=== PATIENT | female | born 1985 | race Caucasian/White ===

== ENCOUNTER → 2023-06-30 15:20 | Outpatient (BNVA) | payer BC, SELFPAY | PROVIDERS: Visit Provider Nurse Practitioner Family | DX: R33.9 Retention of urine, unspecified (principal) | CPT/HCPCS: 81000; 81003 ==

== ENCOUNTER 2024-02-25 01:46 | Emergency (ER) | payer SELFPAY ==
[2024-02-25 01:47] VITALS: BP 126/78; PULSE 106; RESP 18; O2SAT 100; BMI 44.7
--- NOTE | 2024-02-25 01:50 | CTR_ITS ---
PROCEDURE INFORMATION: Exam: CT Head Without Contrast Exam date and time: 02/25/2024 2:07 AM Age: 38 years old Clinical indication: Pain; Headache; Post-traumatic; Prior surgery; Surgery date: 3-7 days post-operative; Surgery type: Brain tumor removed 2 weeks ago; Additional info: Headache, S/P brain surgery TECHNIQUE: Imaging protocol: Computed tomography of the head without contrast. Radiation optimization: All CT scans at this facility use at least one of these dose optimization techniques: automated exposure control; mA and/or kV adjustment per patient size (includes targeted exams where dose is matched to clinical indication); or iterative reconstruction. COMPARISON: No relevant prior studies available. RADIATION DOSE METRICS: Total DLP (mGy-cm): 1095.28 FINDINGS: Brain: Small subdural collection at the operative site measures 4 mm in thickness. mass effect on the left hemisphere with midline shift measured 8 mm [id number]. Fluid at the operative site measures 4.2 cm in diameter. Cerebral ventricles: Ventricles are normal in size and position. Paranasal sinuses: Visualized sinuses are unremarkable. No fluid levels. Mastoid air cells: Visualized mastoid air cells are well aerated. 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 This is predominantly fluid density with a small amount of air. Soft tissues: Overlying scalp swelling. CT/CT head wo con* [id number] IMPRESSION: 1. 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 This is predominantly fluid density with a small amount of air. Measures 4.2 cm diameter 2. Mass effect on the left hemisphere with midline shift measured 8 mm [id number]. Compare with prior exam is needed
--- NOTE | 2024-02-25 01:55 | ED_ITS ---
HPI - Headache 2 General: Chief Complaint: Headache Stated Complaint: HEADACHE Time Seen by Provider: 02/25/24 01:47 History of Present Illness: 38-year-old female presents emergency ro om by ambulance with a headache. She says she has had this headache since she had brain surgery at [facility] couple of weeks ago. She is run out of pain medications and the pain has become intolerable she said. No new focal motor deficits. No real changes in her pain. No fevers. Related Data Previous Rx's Medication Instructions Recorded buspirone 15 mg tablet 15 mg PO BID 90 days #180 tabs 04/17/23 losartan 100 1 tab PO DAILY 90 days #90 tabs 04/17/23 mg-hydrochlorothiazide 25 mg tablet promethazine 25 mg tablet 12.5 mg (1/2 x 25 mg) PO TID PRN 06/30/23 nausea and vomiting #10 tabs potassium chloride 20 mEq See Rx Instructions .Route 08/01/23 tablet,extended release .COMPLEX #90 tabs tizanidine 4 mg tablet 4 mg PO Q8H PRN muscle spasticity 09/05/23 #90 tabs amitriptyline 75 mg tablet 75 mg PO DAILY 90 days #90 tabs 10/14/23 ondansetron HCl 4 mg tablet 4 mg PO TID PRN nausea and 10/14/23 vomiting #20 tabs tramadol 50 mg tablet 50 mg PO TID PRN pain 30 days #90 10/14/23 tabs hydroxyzine HCl 25 mg tablet 25 mg PO QID PRN anxiety #90 tabs 10/22/23 olanzapine 20 mg tablet 20 mg PO DAILY 90 days #90 tabs 10/23/23 venlafaxine 75 mg capsule,extended 225 mg (3 x 75 mg) PO DAILY #9 caps 11/24/23 release 24 hr (Effexor XR) furosemide 40 mg tablet See Rx Instructions .Route 12/08/23 .COMPLEX #30 tabs hydrocodone 5 mg-acetaminophen 325 1 tab PO Q6H PRN pain #20 tabs 02/25/24 mg tablet polyethylene glycol 3350 17 17 g PO DAILY #510 grams 02/25/24 gram/dose oral powder (Miralax) Allergies Allergy/AdvReac Type Severity Reaction Status Date / Time No Known Allergies Allergy Verified 02/25/24 01:54 Review of Systems 2 Narrative: Constitutional symptoms: Negative except as documented in HPI. Skin symptoms: Negative except as documented in HPI. Eye symptoms: Negative except as documented in HPI. ENMT symptoms: Negative except as documented in HPI. Respiratory symptoms: Negative except as documented in HPI. Cardiovascular symptoms: Negative except as documented in HPI. Gastrointestinal symptoms: Negative except as documented in HPI. Genitourinary symptoms: Negative except as documented in HPI. Musculoskeletal symptoms: Negative except as documented in HPI. Neurologic symptoms: Negative except as documented in HPI. Psychiatric symptoms: Negative except as documented in HPI. Endocrine symptoms: Negative except as documented in HPI. PFSH ED 2 PFSH: Medical History Vapes nicotine containing substance History of radiation therapy Breast cancer, left History of chemotherapy Anxiety and depression Hypertension Edema Surgical History H/O total mastectomy of left breast Social History Smoking and tobacco/nicotine status: never used tobacco/nicotine Household members: spouse Marital status: Current occupational status: employed Current gender identity: Female Physical Exam 2 Narrative: EXAM NARRATIVE: General: Alert, no acute distress. Skin: Warm, dry. Head: Normocephalic, atraumatic. Surgical site seems clean dry and intact. Neck: Supple, trachea midline. Eye: Extraocular movements are intact. Ears, nose, mouth and throat: mucosa moist. Cardiovascular: Regular, Normal peripheral perfusion. Respiratory: Lungs are clear to auscultation, respirations are non-labored, breath sounds are equal, Symmetrical chest wall expansion. Gastrointestinal: Soft, Nontender, Non distended Musculoskeletal: Normal ROM, no deformity. Neurological: Alert and oriented, No focal neurological deficit observed. Psychiatric: Cooperative, appropriate mood & affect. Course 2 Vital Signs: Vital signs: Vital Signs Pulse Rate 98 02/25/24 02:33 Respiratory Rate 18 02/25/24 02:57 Blood Pressure 127/92 02/25/24 02:33 Pulse Oximetry 100 02/25/24 02:57 Oxygen Delivery Me thod Room Air 02/25/24 01:47 MDM - Headache Medical Decision Making Medical decision making: Differential diagnosis including but not limited to and based on the above HPI, review of systems and physical exam: Seems this is just postsurgical pain and she is run out of her pain medications. However workup to rule out anything worsening seems appropriate. A head CT to look for signs of infection and basic lab work. Orders placed to evaluate differential diagnosis based on the above differential, HPI and physical exam CT of the head without contrast: There is a large area of postsurgical change. There is still some air there. There is about 8 mm of shift. Given the size of the surgical site radiologist thinks this is likely nothing acute. This was reviewed and interpreted by myself the emergency room physician. I also reviewed the radiology report. Lab Review: Laboratory results were reviewed and interpreted by myself the emergency room physician. Mild leukocytosis with a white count 15,000. Hemoglobin is low at 8.2. I do not have any comparisons to know if this is different than her norm. Does not need transfusion at this point and no indications of GI bleeding. No renal failure. I reviewed the patient's medical record. Reexamination: Patient is improved with pain medications. She says she has not had any new neurologic symptoms and no new pain she just does not have any pain medications. Assessment and plan: Postoperative headache ?Toradol and Zofran without much improvement. She did have improvement with Dilaudid - Discharged home - Discussed findings and plan with patient. Answered any questions. - All laboratory values were reviewed and interpreted personally by myself, the ER physician - All imaging was reviewed and interpreted personally by myself, the ER physician. - Evaluation and treatment of this problem were appropriate in the emergency setting Lab Data 02/25/24 01:58 02/25/24 01:[address] 02/25/24 01:50 IMPRESSION: 1. 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 This is predominantly fluid density with a small amount of air. Measures 4.2 cm diameter 2. Mass effect on the left hemisphere with midline shift measured 8 mm [id number]. Compare with prior exam is needed ADDENDUM: 02/25/24 [id number] Addendum: Findings discussed with Dr. Sanders at 3:22 a.m. central time on 02/25/2024 Laboratory Results WBC 15.21 10^3/uL (3.29-11.43) H 02/25/24 01:58 RBC 3.11 10^6/uL (3.85-5.65) L 02/25/24 01:58 Hgb 8.20 g/dL (11.27-16.99) L 02/25/24 01:58 Hct 27.9 % (36-47) L 02/25/24 01:58 MCV 89.7 fl (85-98) 02/25/24 01:58 MCH 26.4 pg (27-33) L 02/25/24 01:58 MCHC 29.4 g/dL (30-55) L 02/25/24 01:58 RDW 19.1 % (12.1-15.1) H 02/25/24 01:58 Plt Count 657 10^3/cmm (157-399) H 02/25/24 01:58 MPV 8.5 fL (7.4-10.4) 02/25/24 01:58 Neut % (Auto) 58.0 % 02/25/24 01:58 Lymph % (Auto) 32.4 % 02/25/24 01:58 [place] % (Auto) 6.4 % 02/25/24 01:58 Eos % (Auto) 1.8 % 02/25/24 01:58 Baso % (Auto) 0.1 % 02/25/24 01:58 Neut # (Auto) 8.80 10^3/uL (1.8-7.7) H 02/25/24 01:58 Lymph # (Auto) 4.9 10^3/uL (0.8-4.8) H 02/25/24 01:58 [place] # (Auto) 1.0 10^3/uL (0.2-0.9) H 02/25/24 01:58 Eos # (Auto) 0.3 10^3/uL (0.0-0.8) 02/25/24 01:58 Baso # (Auto) 0.0 10^3/uL (0.0-0.1) 02/25/24 01:58 Nucleated RBC % (auto) 0 % 02/25/24 01:58 Nucleated RBCs # 0.0 /100WBC 02/25/24 01:58 Sodium 141 mmol/L (136-145) 02/25/24 01:58 Potassium 3.8 mmol/L (3.5-5.1) 02/25/24 01:58 Chloride 103 mmol/L (98-107) 02/25/24 01:58 Carbon Dioxide 28 mmol/L (22-29) 02/25/24 01:58 Anion Gap 13.8 (5-19) 02/25/24 01:58 BUN 19 mg/dL (6-20) 02/25/24 01:58 Creatinine 0.7 mg/dL (0.5-0.9) 02/25/24 01:58 GFR Calculation 93.2 mL/min (90-130) 02/25/24 01:58 Glucose 94 mg/dL (65-115) 02/25/24 01:58 Calculated Osmolality 294 mOsm/kg (285-295) 02/25/24 01:58 Calcium 8.2 mg/dL (8.5-10.5) L 02/25/24 01:58 Total Bilirubin 0.2 mg/dL (0.15-1.2) 02/25/24 01:58 AST 10 U/L (0-32) 02/25/24 01:58 ALT 19 U/L (0-33) 02/25/24 01:58 Alkaline Phosphatase 94 U/L (35-105) 02/25/24 01:58 Total Protein 5.9 g/dL (6.6-8.7) L 02/25/24 01:58 Albumin 3.4 g/dL (3.5-5.2) L 02/25/24 01:58 Globulin 2.5 g/dL (1.3-4.6) 02/25/24 01:58 Coronavirus (PCR) Negative (Negative) 02/25/24 02:05 Influenza A (PCR) Negative (Negative) 02/25/24 02:05 Influenza Type B (PCR) Negative (Negative) 02/25/24 02:05 RSV (PCR) Negative (Negative) 02/25/24 02:05 All radiology interpretation(s) finalized by discharge Discharge Plan Discharge Patient Disposition: Home Clinical Impression: Headache, Postoperative pain Condition: Stable Prescriptions: New hydrocodone-acetaminophen 5-325 mg tablet 1 tab PO Q6H PRN (Reason: pain) Qty: 20 0RF polyethylene glycol 3350 [Miralax] 17 gram/dose powder 17 g PO DAILY Qty: 510 0RF Rx Instructions: Take 1 scoop daily while taking pain medications. No Action buspirone 15 mg tablet 15 mg PO BID 90 Days Qty: 180 1RF losartan-hydrochlorothiazide 100-25 mg tablet 1 tab PO DAILY 90 Days Qty: 90 1RF ondansetron HCl 4 mg tablet 4 mg PO TID PRN (Reason: nausea and vomiting) Qty: 20 0RF tramadol 50 mg tablet 50 mg PO TID PRN (Reason: pain) 30 Days Qty: 90 0RF amitriptyline 75 mg tablet 75 mg PO DAILY 90 Days Qty: 90 0RF hydroxyzine HCl 25 mg tablet 25 mg PO QID PRN (Reason: anxiety) Qty: 90 2RF promethazine 25 mg tablet 12.5 mg PO TID PRN (Reason: nausea and vomiting) Qty: 10 0RF tizanidine 4 mg tablet 4 mg PO Q8H PRN (Reason: muscle spasticity) Qty: 90 0RF potassium chloride 20 mEq tablet extended release See Rx Instructions .ROUTE .COMPLEX Qty: 90 1RF Dose Instruction: TAKE TWO TABLETS BY MOUTH DAILY Rx Instructions: TAKE TWO TABLETS BY MOUTH DAILY olanzapine 20 mg tablet 20 mg PO DAILY 90 Days Qty: 90 1RF venlafaxine [Effexor XR] 75 mg capsule,extended release 24hr 225 mg PO DAILY Qty: 9 0RF furosemide 40 mg tablet See Rx Instructions .ROUTE .COMPLEX Qty: 30 0RF Dose Instruction: TAKE ONE TABLET BY MOUTH DAILY Rx Instructions: TAKE ONE TABLET BY MOUTH DAILY Discharge Orders: Discharge ED (Routine); Ordered 02/25/24 Ordered By: Kely Sanders Referrals: Nuria Gibson NP [Primary Care Provider] - Discharge Diet: Usual diet Discharge Activity: Increase activity as tolerated Patient Instructions: Opioid Safety, Pain Management Activity Restrictions/Additional Instructions: If symptoms worsen or do not improve you need to follow-up as soon as possible with your neurosurgeon Thank you for choosing [facility] for your healthcare needs today. Please realize this is an emergency room and that we are providing you with a medical screening exam and this may not be complete and all inclusive of all the testing and or work up that you may need to determine your ailment or severity of your illness. You have been screened and evaluated and felt safe for discharge. Health conditions do change or evolve sometimes and as such it is important that you follow up with your Primary Doctor to be re checked, 3-5 days is a general good time frame for follow up. You are always welcome to return to the ED for re assessment if your symptoms are worsening or you have new concerns Coding Level of Care Code ED Reproduction Specialist for Carli Ramey
[2024-02-25 02:04] LABS: Basophils % 0.1 %; Eosinophils # 0.3 10^3/uL (0.0-0.8); Eosinophils % 1.8 %; Hematocrit 27.9 % (36-47); Lymphocytes # 4.9 10^3/uL (0.8-4.8); Lymphocytes % 32.4 %; Mean Corpuscular HGB Conc 29.4 g/dL (30-55); Mean Corpuscular Hemoglobin 26.4 pg (27-33); Mean Corpuscular Volume 89.7 fl (85-98); Mean Platelet Volume 8.5 fL (7.4-10.4); Monocytes % 6.4 %; Nucleated Red Blood Cells % 0 %; Platelet Count 657 10^3/cmm (157-399); Red Blood Count 3.11 10^6/uL (3.85-5.65); Red Cell Distribution Width 19.1 % (12.1-15.1); White Blood Count 15.21 10^3/uL (3.29-11.43)
[2024-02-25 02:23] LABS: Alanine Aminotransferase 19 U/L (0-33); Albumin Level 3.4 g/dL (3.5-5.2); Alkaline Phosphatase 94 U/L (35-105); Anion Gap 13.8 (5-19); Aspartate Amino Transferase 10 U/L (0-32); Blood Urea Nitrogen 19 mg/dL (6-20); Calcium 8.2 mg/dL (8.5-10.5); Carbon Dioxide 28 mmol/L (22-29); Chloride 103 mmol/L (98-107); Creatinine Clr Calc Pharmacy 176.6977; Globulin 2.5 g/dL (1.3-4.6); Glomerular Filtration Rate 93.2 mL/min (90-130); Glucose 94 mg/dL (65-115); Osmolality Calculated 294 mOsm/kg (285-295); Potassium 3.8 mmol/L (3.5-5.1); Sodium 141 mmol/L (136-145); Total Bilirubin 0.2 mg/dL (0.15-1.2); Total Protein 5.9 g/dL (6.6-8.7)
[2024-02-25] MEDS: ketorolac 30 mg/mL INJ IVP (02:27)
[2024-02-25] MEDS: orphenadrine 30 mg/mL Inj 2 mL 60 MG IVP (02:27)
[2024-02-25 02:33] VITALS: BP 127/92; PULSE 98; O2SAT 100
[2024-02-25 02:33] LABS: Slide Review Slide Review Perform
[2024-02-25 02:43] LABS: Covid PCR NEGATIVE (Negative); Influenza A NEGATIVE (Negative); Influenza B NEGATIVE (Negative); Respiratory Syncytial Virus Ce NEGATIVE (Negative)
[2024-02-25 02:57] VITALS: RESP 18; O2SAT 100
[2024-02-25] MEDS: ondansetron 2 mg/ML SDV 2 mL 4 MG IVP (02:57)
[2024-02-25] MEDS: HYDROmorphone 1 mg/mL INJ 1 mL IVP (02:57)
[2024-02-25 03:59] VITALS: BP 116/61; PULSE 97; O2SAT 98
[2024-02-25 04:30] VITALS: BP 124/84; PULSE 94; O2SAT 98
[2024-02-25] MEDS: HYDROcodone-acetaminophen 5-325 mg Tablet 1 TAB PO (04:38)
[2024-02-25 06:10] VITALS: BP 104/68; PULSE 97; O2SAT 100
== END 2024-02-25 05:10 | disposition home or self-care (01) ==
PROVIDERS: Emergency Provider Emergency Medicine; PCP Nurse Practitioner Family
DX: R51.9 Headache, unspecified (principal); G89.18 Other acute postprocedural pain
CPT/HCPCS: 0241U; 36415; 70450; 80053; 85025; 96374; 96375; 99285; J1171; J1885; J2360; J2405

== ENCOUNTER 2024-02-26 12:12 | Emergency (ER) | payer SELFPAY ==
[2024-02-26 12:17] VITALS: PULSE 101; RESP 18; TEMP 36.6; O2SAT 99; BMI 42.7
--- NOTE | 2024-02-26 13:56 | CTR_ITS ---
PROCEDURE INFORMATION: Exam: CT Head Without Contrast Exam date and time: 02/26/2024 4:17 PM Age: 38 years old Clinical indication: Pain; Headache; Additional info: ZELAYA TECHNIQUE: Imaging protocol: Computed tomography of the head without contrast. Radiation optimization: All CT scans at this facility use at least one of these dose optimization techniques: automated exposure control; mA and/or kV adjustment per patient size (includes targeted exams where dose is matched to clinical indication); or iterative reconstruction. COMPARISON: CT head wo con* [id number] 02/25/2024 2:07 AM RADIATION DOSE METRICS: Total DLP (mGy-cm): 1085.88 FINDINGS: Brain: Redemonstrated craniotomy along the left cerebral convexity with similar hypoattenuation of the subjacent brain parenchyma in the temporal lobe as well as pneumocephalus. As before the fluid collection measures approximately 4.2 cm in diameter. No significant change in an overlying subdural collection measuring approximately 5 mm in thickness. Similar 8 mm [id number] midline shift. Cerebral ventricles: No ventriculomegaly. Paranasal sinuses: Visualized sinuses are unremarkable. No fluid levels. Mastoid air cells: Visualized mastoid air cells are well aerated. Bones: Left frontotemporal craniotomy. Soft tissues: Overlying scalp swelling. CT/CT head wo con* [id number] IMPRESSION: 1. Stable postsurgical changes from left frontotemporal craniotomy with an area of encephalomalacia along the subjacent temporal lobe 2. No significant change in a small subdural collection along the left cerebral cortex. 3. Ongoing 8 mm [id number] midline shift.
[2024-02-26 14:45] LABS: Basophils % 0.2 %; Eosinophils # 0.3 10^3/uL (0.0-0.8); Eosinophils % 1.8 %; Hematocrit 31.4 % (36-47); Lymphocytes # 2.3 10^3/uL (0.8-4.8); Lymphocytes % 15.9 %; Mean Corpuscular HGB Conc 29.9 g/dL (30-55); Mean Platelet Volume 8.4 fL (7.4-10.4); Monocytes # 0.9 10^3/uL (0.2-0.9); Monocytes % 6.4 %; Neutrophils % 75.1 %; Nucleated Red Blood Cells % 0.1 %; Platelet Count 689 10^3/cmm (157-399); Red Blood Count 3.61 10^6/uL (3.85-5.65); Red Cell Distribution Width 18.7 % (12.1-15.1); White Blood Count 14.25 10^3/uL (3.29-11.43)
[2024-02-26 14:59] LABS: Chloride 103 mmol/L (98-107); Sodium 143 mmol/L (136-145)
[2024-02-26 15:10] LABS: Alanine Aminotransferase 22 U/L (0-33); Albumin Level 3.8 g/dL (3.5-5.2); Alkaline Phosphatase 118 U/L (35-105); Anion Gap 13.9 (5-19); Aspartate Amino Transferase 9 U/L (0-32); Blood Urea Nitrogen 12 mg/dL (6-20); C Reactive Protein 36.7 mg/L (0.0-4.9); Calcium 8.7 mg/dL (8.5-10.5); Carbon Dioxide 30 mmol/L (22-29); Creatinine Clr Calc Pharmacy 172.0625; Globulin 2.7 g/dL (1.3-4.6); Glomerular Filtration Rate 93.2 mL/min (90-130); Glucose 105 mg/dL (65-115); Osmolality Calculated 296 mOsm/kg (285-295); Total Bilirubin 0.3 mg/dL (0.15-1.2); Total Protein 6.5 g/dL (6.6-8.7)
--- NOTE | 2024-02-26 15:18 | ED_ITS ---
HPI - Headache 2 General: Chief Complaint: Headache Stated Complaint: headache Time Seen by Provider: 02/26/24 14:38 Source: patient Mode of arrival: EMS Limitations: no limitations History of Present Illness: Patient is a 38-year-old female here for complaints of a headache. She tells me she had brain surgery last week to remove a brain tumor. She was seen here in our facility yesterday and had CT imaging as well as lab work performed. I was told by nursing staff that there were some issues with her prescriptions yesterday and that they were contacted by pharmacy stating they would not fill prescription for narcotics as she had had multiple prescriptions for narcotics by multiple providers.Surgeon was Dr. Ross at [facility]. Date of surgery was 02/11. MD elicited complaint: headache Pertinent past history: other (ZELAYA following brain surgery) Onset (ago): day(s) Severity: severe Exacerbating factors: none Relieving factors: nothing Associated symptoms: Reports no associated symptoms; Deny chest pain, fever(s), nausea or vomiting Treatments prior to arrival: none Related Data Previous Rx's Medication Instructions Recorded buspirone 15 mg tablet 15 mg PO BID 90 days #180 tabs 04/17/23 losartan 100 1 tab PO DAILY 90 days #90 tabs 04/17/23 mg-hydrochlorothiazide 25 mg tablet promethazine 25 mg tablet 12.5 mg (1/2 x 25 mg) PO TID PRN 06/30/23 nausea and vomiting #10 tabs potassium chloride 20 mEq See Rx Instructions .Route 08/01/23 tablet,extended release .COMPLEX #90 tabs tizanidine 4 mg tablet 4 mg PO Q8H PRN muscle spasticity 09/05/23 #90 tabs amitriptyline 75 mg tablet 75 mg PO DAILY 90 days #90 tabs 10/14/23 ondansetron HCl 4 mg tablet 4 mg PO TID PRN nausea and 10/14/23 vomiting #20 tabs tramadol 50 mg tablet 50 mg PO TID PRN pain 30 days #90 10/14/23 tabs hydroxyzine HCl 25 mg tablet 25 mg PO QID PRN anxiety #90 tabs 10/22/23 olanzapine 20 mg tablet 20 mg PO DAILY 90 days #90 tabs 10/23/23 venlafaxine 75 mg capsule,extended 225 mg (3 x 75 mg) PO DAILY #9 caps 11/24/23 release 24 hr (Effexor XR) furosemide 40 mg tablet See Rx Instructions .Route 12/08/23 .COMPLEX #30 tabs hydrocodone 5 mg-acetaminophen 325 1 tab PO Q6H PRN pain #20 tabs 02/25/24 mg tablet polyethylene glycol 3350 17 17 g PO DAILY #510 grams 02/25/24 gram/dose oral powder (Miralax) Allergies Allergy/AdvReac Type Severity Reaction Status Date / Time No Known Allergies Allergy Verified 02/25/24 01:54 Review of Systems 2 Const: Denies: fever(s) Eyes: Denies: change in vision, blurry vision, photophobia, floaters or seeing flashes Card: Denies: chest pain Resp: Denies: dyspnea GI: Denies: nausea or vomiting Musc: Denies: neck pain Neuro: Reports: headache(s); Denies: numbness in extremities, weakness in extremities, sensory changes, difficulty walking, dizziness, Slurred speech present or seizure-like activity PFSH ED 2 PFSH: Medical History Vapes nicotine containing substance History of radiation therapy Breast cancer, left History of chemotherapy Anxiety and depression Hypertension Edema Surgical History H/O total mastectomy of left breast Social History Smoking and tobacco/nicotine status: never used tobacco/nicotine Household members: spouse Marital status: Current occupational status: employed Current gender identity: Female Physical Exam 2 Const: COMMON NORMALS: no acute distress, patient oriented x3, no limitations, alert and well nourished GENERAL APPEARANCE: cooperative O RIENTATION/CONSCIOUSNESS: Yes awake, Yes oriented to person, Yes oriented to place and Yes oriented to time HENMT: COMMON NORMALS: normocephalic and atraumatic HEAD & SCALP: normal to inspection, normocephalic, atraumatic and other (surgical incision appears well) Eye: GENERAL EYE: appearance normal, both eyes and all related structures and normal light reflex DIRECT OPHTHALMOSCOPY: Yes normal light reflex Neck/C-Spine: COMMON NORMALS: full ROM and no meningeal signs GENERAL: Yes normal visual inspection Resp: COMMON NORMALS: normal respiratory effort and clear to auscultation bilaterally AUSCULTATION: clear to auscultation bilaterally Cardio: COMMON NORMALS: regular rate and regular rhythm RATE: regular rate RHYTHM: regular rhythm Neuro: BERENICE COMA SCALE: document GCS findings Berenice coma scale eye opening: Spontaneous [place] coma scale verbal response: Orientated Berenice coma scale motor response: Obey commands Berenice coma scale total score: 15 COMMON NORMALS: patient oriented x3, CN's II-XII intact bilaterally, moves all extremities, no focal motor deficits, no sensory deficits noted and gait normal SENSORIUM/ORIENTATION: Yes alert, Yes oriented to person, Yes oriented to place and Yes oriented to time MENINGEAL SIGNS: Yes no meningeal signs Course 2 Vital Signs: Vital signs: Vital Signs Temperature 97.9 F 02/26/24 12:17 Pulse Rate 92 02/26/24 19:19 Respiratory Rate 18 02/26/24 18:03 Blood Pressure 121/84 02/26/24 19:19 Pulse Oximetry 99 02/26/24 19:19 Oxygen Delivery Me thod Room Air 02/26/24 18:03 MDM - Headache Medical Decision Making Patient has asked for more pain meds countless times during her emergency department stay. She clinically appears in no acute distress yet rating her pain at a 10/10. She reportedly has had 10/10 pain every day since the surgery. Pharmacy would not fill her opiate prescription yesterday due to multiple opiate prescriptions by multiple providers since the surgery. I did discuss with her surgeon Dr. Ross at [facility] and reviewed her CT scan from yesterday as well as today's scan. She states she just followed up with patient 2 days ago-was complaining of 10/10 pain then too. She also alerted me to concerns for possible drug-seeking behavior and prescriptions that pharmacy wouldn't fill in [place] as well. She advised no further opiate pain medications and recommendations for Ibuprofen and Fioricet. She has follow-up with neuro- oncology next week. Medical Records I reviewed the patient's medical records. Lab Data I reviewed the patient's lab results. 02/26/24 14:29 02/26/24 14:[address] 02/26/24 13:56 IMPRESSION: 1. Stable postsurgical changes from left frontotemporal craniotomy with an area of encephalomalacia along the subjacent temporal lobe 2. No significant change in a small subdural collection along the left cerebral cortex. 3. Ongoing 8 mm [id number] midline shift. Laboratory Results WBC 14.25 10^3/uL (3.29-11.43) H 02/26/24 14: RBC 3.61 10^6/uL (3.85-5.65) L 02/26/24 14: Hgb 9.40 g/dL (11.27-16.99) L 02/26/24 14: Hct 31.4 % (36-47) L 02/26/24 14: MCV 87.0 fl (85-98) 02/26/24 14: MCH 26.0 pg (27-33) L 02/26/24 14: MCHC 29.9 g/dL (30-55) L 02/26/24 14: RDW 18.7 % (12.1-15.1) H 02/26/24 14: Plt Count 689 10^3/cmm (157-399) H 02/26/24 14: MPV 8.4 fL (7.4-10.4) 02/26/24: Neut % (Auto) 75.1 % 02/26/24 14: Lymph % (Auto) 15.9 % 02/26/24: Mccracken % (Auto) 6.4 % 02/26/24: Eos % (Auto) 1.8 % 02/26/24: Baso % (Auto) 0.2 % 02/26/24: Neut # (Auto) 10.70 10^3/uL (1.8-7.7) H 02/26/24: Lymph # (Auto) 2.3 10^3/uL (0.8-4.8) 02/26/24: Mccracken # (Auto) 0.9 10^3/uL (0.2-0.9) 02/26/24: Eos # (Auto) 0.3 10^3/uL (0.0-0.8) 02/26/24 14: Baso # (Auto) 0.0 10^3/uL (0.0-0.1) 02/26/24 14: Nucleated RBC % (auto) 0.1 % 02/26/24 14: Nucleated RBCs # 0.0 /100WBC 02/26/24 14:29 Sodium 143 mmol/L (136-145) 02/26/24 14: Potassium 4.0 mmol/L (3.5-5.1) 02/26/24 14: Chloride 103 mmol/L (98-107) 02/26/24 14:29 Carbon Dioxide 30 mmol/L (22-29) H 02/26/24 14:29 Anion Gap 13.9 (5-19) 02/26/24 14:29 BUN 12 mg/dL (6-20) 02/26/24 14: Creatinine 0.7 mg/dL (0.5-0.9) 02/26/24 14: GFR Calculation 93.2 mL/min (90-130) 02/26/24 14: Glucose 105 mg/dL (65-115) 02/26/24 14: Calculated Osmolality 296 mOsm/kg (285-295) H 02/26/24 14:29 Calcium 8.7 mg/dL (8.5-10.5) 02/26/24 14: Total Bilirubin 0.3 mg/dL (0.15-1.2) 02/26/24 14: AST 9 U/L (0-32) 02/26/24 14: ALT 22 U/L (0-33) 02/26/24 14:29 Alkaline Phosphatase 118 U/L (35-105) H 02/26/24 14: C-Reactive Protein 36.7 mg/L (0.0-4.9) H 02/26/24 14: Total Protein 6.5 g/dL (6.6-8.7) L 02/26/24 14: Albumin 3.8 g/dL (3.5-5.2) 02/26/24 14: Globulin 2.7 g/dL (1.3-4.6) 02/26/24 14:29 All radiology interpretation(s) finalized by discharge Discharge Plan Discharge Patient Disposition: Home Clinical Impression: Headache Qualifiers: Headache type: unspecified Headache chronicity pattern: acute headache I ntractability: intractable Qualified Code(s): R51.9 - Headache, unspecified Condition: Stable Prescriptions: No Action buspirone 15 mg tablet 15 mg PO BID 90 Days Qty: 180 1RF losartan-hydrochlorothiazide 100-25 mg tablet 1 tab PO DAILY 90 Days Qty: 90 1RF ondansetron HCl 4 mg tablet 4 mg PO TID PRN (Reason: nausea and vomiting) Qty: 20 0RF tramadol 50 mg tablet 50 mg PO TID PRN (Reason: pain) 30 Days Qty: 90 0RF amitriptyline 75 mg tablet 75 mg PO DAILY 90 Days Qty: 90 0RF hydroxyzine HCl 25 mg tablet 25 mg PO QID PRN (Reason: anxiety) Qty: 90 2RF promethazine 25 mg tablet 12.5 mg PO TID PRN (Reason: nausea and vomiting) Qty: 10 0RF tizanidine 4 mg tablet 4 mg PO Q8H PRN (Reason: muscle spasticity) Qty: 90 0RF potassium chloride 20 mEq tablet extended release See Rx Instructions .ROUTE .COMPLEX Qty: 90 1RF Dose Instruction: TAKE TWO TABLETS BY MOUTH DAILY Rx Instructions: TAKE TWO TABLETS BY MOUTH DAILY olanzapine 20 mg tablet 20 mg PO DAILY 90 Days Qty: 90 1RF venlafaxine [Effexor XR] 75 mg capsule,extended release 24hr 225 mg PO DAILY Qty: 9 0RF furosemide 40 mg tablet See Rx Instructions .ROUTE .COMPLEX Qty: 30 0RF Dose Instruction: TAKE ONE TABLET BY MOUTH DAILY Rx Instructions: TAKE ONE TABLET BY MOUTH DAILY hydrocodone-acetaminophen 5-325 mg tablet 1 tab PO Q6H PRN (Reason: pain) Qty: 20 0RF polyethylene glycol 3350 [Miralax] 17 gram/dose powder 17 g PO DAILY Qty: 510 0RF Rx Instructions: Take 1 scoop daily while taking pain medications. Discharge Orders: Discharge ED (Routine); Ordered 02/26/24 Ordered By: Dorothy Diallo Referrals: Nuria Gibson NP [Primary Care Provider] - Activity Restrictions/Additional Instructions: As we discussed, after speaking to your neurosurgeon as well as reviewing pharmacy records-there is no indication for additional opiate pain medication at this time. Your surgeon recommended Ibuprofen and Fioricet to be used for your discomfort. Please follow-up with neuro-oncology next week as scheduled. Coding Level of Care Code ED Correctional Program Specialist for Carli Ramey
[2024-02-26] MEDS: HYDROmorphone 1 mg/mL INJ 1 mL IM (15:31)
[2024-02-26] MEDS: ondansetron 2 mg/ML SDV 2 mL 4 MG IM (15:32)
[2024-02-26] MEDS: ketorolac 60 mg/2 mL INJ IM (18:01)
[2024-02-26 18:03] VITALS: BP 124/85; PULSE 90; RESP 18; O2SAT 98
[2024-02-26 19:19] VITALS: BP 121/84; PULSE 92; O2SAT 99
== END 2024-02-26 19:19 | disposition home or self-care (01) ==
PROVIDERS: Emergency Medicine; Emergency Provider Physician Assistant; PCP Nurse Practitioner Family
DX: R51.9 Headache, unspecified (principal)
CPT/HCPCS: 70450; 80053; 85025; 86140; 96372; 99284; J1171; J1885; J2405

== ENCOUNTER 2024-03-12 23:44 | Emergency (ER) | payer SELFPAY ==
[2024-03-12 23:49] VITALS: BP 102/62; PULSE 125; RESP 20; TEMP 37.2; O2SAT 93; BMI 40.6
--- NOTE | 2024-03-12 23:57 | XRR_ITS ---
PROCEDURE INFORMATION: Exam: XR Chest Exam date and time: 03/13/2024 12:02 AM Age: 38 years old Clinical indication: Other: Syncope/hypoxia; Prior surgery; Surgery date: 6+ months; Surgery type: Mastectomy; Patient HX: Hypoxic post syncopal episode. History of breast cancer. TECHNIQUE: Imaging protocol: Radiologic exam of the chest. Views: 1 view. COMPARISON: No relevant prior studies available. FINDINGS: Lungs: Unremarkable. No consolidation. Pleural spaces: Unremarkable. No pleural effusion. No pneumothorax. Heart/Mediastinum: Unremarkable. No cardiomegaly. Bones/joints: Mild dextroscoliosis. XR/XR chest 1V portable [id number] IMPRESSION: No acute findings.
[2024-03-13] VITALS (9 sets, daily range): BP systolic 98–137; BP diastolic 45–84; PULSE 107–126; RESP 16–18; O2SAT 91–95
--- NOTE | 2024-03-13 00:27 | CTR_ITS ---
PROCEDURE INFORMATION: Exam: CT Head Without Contrast Exam date and time: 03/13/2024 12:36 AM Age: 38 years old Clinical indication: Syncope and collapse; Prior surgery; Surgery date: 1-6 months; Surgery type: Left intracranial tumor resection; Patient HX: Syncopal episode. C/O dizziness. ; Additional info: Syncope, recent craniotomy TECHNIQUE: Imaging protocol: Computed tomography of the head without contrast. Radiation optimization: All CT scans at this facility use at least one of these dose optimization techniques: automated exposure control; mA and/or kV adjustment per patient size (includes targeted exams where dose is matched to clinical indication); or iterative reconstruction. COMPARISON: CT head wo con* [id number] 02/26/2024 4:17 PM RADIATION DOSE METRICS: Total DLP (mGy-cm): 1038.28 FINDINGS: Brain: Decreased midline shift from [id number] now measuring 7 mm. Resolution of intracranial air. No evidence for residual subdural fluid or hemorrhage. Persistent white matter edema through the left basal ganglia and temporal lobe. Cerebral ventricles: Ventricles are normal in size and position. Paranasal sinuses: Mucosal thickening in the ethmoid and sphenoid sinuses. Mastoid air cells: Visualized mastoid air cells are well aerated. Bones: Surgical change in the left calvarium with persistent CSF collection in the left middle cranial fossa with encephalomalacia in the left temporal lobe. Soft tissues: Improved swelling in the left scalp. CT/CT head wo con* [id number] IMPRESSION: 1. Surgical change in the left calvarium with stable CSF collection in the left middle cranial fossa with encephalomalacia in the left temporal lobe. 2. Decreased midline shift from [id number] now measuring 7 mm. 3. Resolution of intracranial air. 4. No evidence for residual subdural fluid or hemorrhage. 5. Persistent white matter edema through the left basal ganglia, left inferior frontal and left temporal lobe.
[2024-03-13 00:46] LABS: Basophils % 0.2 %; Hematocrit 26.9 % (36-47); Lymphocytes # 1.7 10^3/uL (0.8-4.8); Lymphocytes % 7.2 %; Mean Corpuscular HGB Conc 31.2 g/dL (30-55); Mean Corpuscular Hemoglobin 25.3 pg (27-33); Mean Platelet Volume 9.7 fL (7.4-10.4); Monocytes # 1.3 10^3/uL (0.2-0.9); Monocytes % 5.4 %; Neutrophils # 20.34 10^3/uL (1.8-7.7); Neutrophils % 85.9 %; Nucleated Red Blood Cells % 0.1 %; Platelet Count 481 10^3/cmm (157-399); Red Blood Count 3.32 10^6/uL (3.85-5.65); Red Cell Distribution Width 17.1 % (12.1-15.1); White Blood Count 23.68 10^3/uL (3.29-11.43)
[2024-03-13 01:04] LABS: Troponin(5th) Baseline 60 ng/L (0-10)
[2024-03-13 01:07] LABS: Lactic Sepsis W/Reflex 1.7 mmol/L (0.5-2.2)
[2024-03-13 01:08] LABS: Alanine Aminotransferase 23 U/L (0-33); Albumin Level 3.1 g/dL (3.5-5.2); Alkaline Phosphatase 154 U/L (35-105); Anion Gap 13.4 (5-19); Aspartate Amino Transferase 33 U/L (0-32); Blood Urea Nitrogen 7 mg/dL (6-20); Calcium 7.5 mg/dL (8.5-10.5); Chloride 80 mmol/L (98-107); Creatinine Clr Calc Pharmacy 167.4266; Globulin 2.7 g/dL (1.3-4.6); Glomerular Filtration Rate 93.2 mL/min (90-130); Glucose 116 mg/dL (65-115); Osmolality Calculated 273 mOsm/kg (285-295); Sodium 132 mmol/L (136-145); Total Bilirubin 0.3 mg/dL (0.15-1.2); Total Protein 5.8 g/dL (6.6-8.7)
[2024-03-13 01:10] LABS: Acetaminophen < 5.0 ug/mL (10-30); Carbon Dioxide 41 mmol/L (22-29); Creatine Phosphokinase 583 U/L (26-192); Potassium 2.4 mmol/L (3.5-5.1); Salicylate < 0.3 mg/dL (3-10)
--- NOTE | 2024-03-13 01:13 | CTR_ITS ---
PROCEDURE INFORMATION: Exam: CTA Chest With Contrast Exam date and time: 03/13/2024 1:40 AM Age: 38 years old Clinical indication: Abnormal findings; Abnormal lab test; Elevated wbc; Other: N/a; Shortness of breath; Patient HX: SOB and hypoxia with tachycardia. Wbc of 24k. Elevated base trop. Ck of 583. Crp of 346. History of breast cancer. ; Additional info: Syncope, tachycardia, hypoxia TECHNIQUE: Imaging protocol: Computed tomographic angiography of the chest with contrast. Exam focused on the arteries. 3D rendering (Not supervised by radiologist): MIP and/or 3D reconstructed images were created by the technologist. Radiation optimization: All CT scans at this facility use at least one of these dose optimization techniques: automated exposure control; mA and/or kV adjustment per patient size (includes targeted exams where dose is matched to clinical indication); or iterative reconstruction. Contrast material: OMNI 350; Contrast volume: 100 ml; Contrast route: INTRAVENOUS (IV); COMPARISON: CR (CHEST, ) 03/13/2024 12:02 AM RADIATION DOSE METRICS: Total DLP (mGy-cm): 1888.11 FINDINGS: Pulmonary arteries: Pulmonary vascular congestion with mild interstitial edema. Aorta: Unremarkable. No aortic aneurysm. No aortic dissection. Lungs: See Pulmonary arteries finding. Pleural spaces: Unremarkable. No pneumothorax. No pleural effusion. Heart: Cardiomegaly, no pericardial effusion. Lymph nodes: Unremarkable. No enlarged lymph nodes. Bones/joints: Unremarkable. No acute fracture. Soft tissues: Unremarkable. PROCEDURE INFORMATION: Exam: CT Abdomen And Pelvis With Contrast Exam date and time: 03/13/2024 1:40 AM Age: 38 years old Clinical indication: Abnormal findings; Abnormal lab test; Elevated wbc; Other: N/a; Shortness of breath; Patient HX: SOB and hypoxia with tachycardia. Wbc of 24k. Elevated base trop. Ck of 583. Crp of 346. History of breast cancer. ; Additional info: Syncope, tachycardia, hypoxia TECHNIQUE: Imaging protocol: Computed tomography of the abdomen and pelvis with contrast. Radiation optimization: All CT scans at this facility use at least one of these dose optimization techniques: automated exposure control; mA and/or kV adjustment per patient size (includes targeted exams where dose is matched to clinical indication); or iterative reconstruction. Contrast material: OMNI 350; Contrast volume: 100 ml; Contrast route: INTRAVENOUS (IV); COMPARISON: CR (CHEST, ) 03/13/2024 12:02 AM RADIATION DOSE METRICS: Total DLP (mGy-cm): 1888.11 FINDINGS: Liver: Decreased density of the liver, evidence for fatty infiltration. Gallbladder and biliary ducts: Gallbladder is surgically absent. No biliary dilatation. Pancreas: Normal. No ductal dilation. Spleen: Normal. No splenomegaly. Adrenal glands: Normal. No mass. Kidneys and ureters: Normal. No hydronephrosis. Stomach and bowel: Increased stool within the colon. No dilated bowel. Appendix: No evidence of appendicitis. Intraperitoneal space: Unremarkable. No free air. No significant fluid collection. Vasculature: Unremarkable. No abdominal aortic aneurysm. Lymph nodes: Unremarkable. No enlarged lymph nodes. Urinary bladder: Unremarkable as visualized. Reproductive: Two right adnexal cysts measuring 4-5cm in diameter. Bones/joints: Unremarkable. No acute fracture. Soft tissues: Unremarkable. CT/CT angio chest w abd pel w con IMPRESSION: Pulmonary vascular congestion with mild interstitial edema. IMPRESSION: 1. Decreased density of the liver, evidence for fatty infiltration. 2. Two right adnexal cysts measuring 4-5cm in diameter. Correlation with ultrasound suggested.
[2024-03-13] MEDS: ketorolac 30 mg/mL INJ IVP (01:30)
[2024-03-13] MEDS: sodium chloride 0.9% 1,000 ML 999 ML IV ×2 (01:35→03:10)
[2024-03-13 01:38] LABS: Magnesium 1.2 mg/dL (1.7-2.3)
[2024-03-13] MEDS: iohexol 350 mg/mL 500 mL Btl (per mL) IV (01:57)
--- NOTE | 2024-03-13 01:59 | ECG_ITS ---
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 Measurements Intervals [place] Rate: 124 P: 84 FL: 162 QRS: 18 QRSD: 78 T: 41 QT: 407 QTc: 586 Interpretive Statements SINUS TACHYCARDIA LOW QRS VOLTAGE IN PRECORDIAL LEADS [QRS DEFLECTION < 1.0 mV IN CHEST LEADS] No previous ECG available for comparison Electronically Signed On 03-14-2024 19:08:54 DINNER COOK by Robby Miramontes M.D. [email or web address]
[2024-03-13] MEDS: piperacillin-tazobactam 4.5 GM in sodium chloride 0.9% (plus) 50 ML IV (03:07)
[2024-03-13 03:15] LABS: Bilirubin Urine Negative (Negative); Blood Urine Negative (Negative); Glucose Urine UA Negative (Normal); Ketones Urine Negative (Negative); Leukocyte Esterase Urine 1+ (Negative); Nitrate Urine Negative (Negative); Protein Urine Negative (Negative); Specific Gravity, Urine 1.023 (1.005-1.030); Urine Appearance Clear (CLEAR); Urine Color Yellow (Yellow)
[2024-03-13] MEDS: potassium chloride oral liq 20 mEq/15 mL UDC 40 MEQ PO (03:16)
[2024-03-13] MEDS: lidocaine 1% 5 ML in potassium chloride premix 100 ML 52.5 ML IV (03:17)
[2024-03-13 03:20] LABS: Add Urine Microscopic? YES; Bacteria Urine Trace /hpf; Hyaline Casts Urine 0-4 /lpf; RBC Urine 0-2 /hpf (0-2); Squamous Epithelial Cell Urine 0-5 /hpf (0-5)
[2024-03-13 03:22] LABS: Amphetamines Screen Urine Negative (Negative); Barbiturates Screen Urine Positive (Negative); Benzodiazepines Screen Urine Negative (Negative); Cocaine Screen Urine Negative (Negative); Opiate Screen Urine Positive (Negative); PCP Screen Urine Negative (Negative); THC Screen Urine Positive (Negative)
[2024-03-13 03:29] LABS: Troponin 5 2HR 60.56 ng/L (0-10); Troponin 5 2HR Delta 0.56 ABS# (0-10)
[2024-03-13] MEDS: ondansetron 2 mg/ML SDV 2 mL 4 MG IVP (04:00)
[2024-03-13] MEDS: morphine 4 mg/mL SDV 1 mL IVP ×2 (04:03→06:46)
[2024-03-13 06:14] LABS: Adenovirus Not Detected (NOT DETECT); Chlamydia Pneumoniae Not Detected (NOT DETECT); Coronavirus 229E,HKU1,NL63,OC4 Not Detected (NOT DETECT); Human Metapneumovirus Not Detected (NOT DETECT); Human Rhinovirus/Enterovirus Not Detected (NOT DETECT); Influenza A Not Detected (NOT DETECT); Influenza A H1 Not Detected (NOT DETECT); Influenza A H1-2009 Not Detected (NOT DETECT); Influenza A H3 Not Detected (NOT DETECT); Influenza B Not Detected (NOT DETECT); Mycoplasma Pneumoniae Not Detected (NOT DETECT); Parainfluenza Virus Type 1 Not Detected (NOT DETECT); Parainfluenza Virus Type 2 Not Detected (NOT DETECT); Parainfluenza Virus Type 3 Not Detected (NOT DETECT); Parainfluenza Virus Type 4 Not Detected (NOT DETECT); Respiratory Syncytial Virus A Not Detected (NOT DETECT); Respiratory Syncytial Virus B Not Detected (NOT DETECT); SARS-COV-2 Not Detected (NOT DETECT)
--- NOTE | 2024-03-13 06:21 | ED_ITS ---
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 She has presented here a couple of times with ongoing headache on and off since her surgery. CTs have been stable. Laboratory has essentially been stable as well. Early this morning, she had a syncopal episode at home. Her son was with her, and noted that he found her on the floor. She was out 2 minutes or less. No definite seizure activity was noted. She did have a small duration of confusion following, but is now back at her baseline. She complains of a headache. No neck stiffness or pain. She is able to walk. She denies vomiting. She says she has had a cough for the past few days. No sputum production. Related Data Previous Rx's Medication Instructions Recorded buspirone 15 mg tablet 15 mg PO BID 90 days #180 tabs 04/17/23 losartan 100 1 tab PO DAILY 90 days #90 tabs 04/17/23 mg-hydrochlorothiazide 25 mg tablet promethazine 25 mg tablet 12.5 mg (1/2 x 25 mg) PO TID PRN 06/30/23 nausea and vomiting #10 tabs potassium chloride 20 mEq See Rx Instructions .Route 08/01/23 tablet,extended release .COMPLEX #90 tabs tizanidine 4 mg tablet 4 mg PO Q8H PRN muscle spasticity 09/05/23 #90 tabs amitriptyline 75 mg tablet 75 mg PO DAILY 90 days #90 tabs 10/14/23 ondansetron HCl 4 mg tablet 4 mg PO TID PRN nausea and 10/14/23 vomiting #20 tabs tramadol 50 mg tablet 50 mg PO TID PRN pain 30 days #90 10/14/23 tabs hydroxyzine HCl 25 mg tablet 25 mg PO QID PRN anxiety #90 tabs 10/22/23 olanzapine 20 mg tablet 20 mg PO DAILY 90 days #90 tabs 10/23/23 venlafaxine 75 mg capsule,extended 225 mg (3 x 75 mg) PO DAILY #9 caps 11/24/23 release 24 hr (Effexor XR) furosemide 40 mg tablet See Rx Instructions .Route 12/08/23 .COMPLEX #30 tabs hydrocodone 5 mg-acetaminophen 325 1 tab PO Q6H PRN pain #20 tabs 02/25/24 mg tablet polyethylene glycol 3350 17 17 g PO DAILY #510 grams 02/25/24 gram/dose oral powder (Miralax) Allergies Allergy/AdvReac Type Severity Reaction Status Date / Time No Known Allergies Allergy Verified 02/25/24 01:54 PFSH ED 2 PFSH: Medical History Vapes nicotine containing substance History of radiation therapy Breast cancer, left History of chemotherapy Anxiety and depression Hypertension Edema Surgical History H/O total mastectomy of left breast Social History Smoking and tobacco/nicotine status: never used tobacco/nicotine Household members: spouse Marital status: Current occupational status: employed Current gender identity: Female Physical Exam 2 Const: GENERAL APPEARANCE: cooperative and ill appearing (mildly); not frail appearing HENMT: COMMON NORMALS: normocephalic, atraumatic and Normal external nose present HEAD & SCALP: normocephalic and atraumatic FACE & SINUS: normal facial exam and face symmetric NOSE: Normal external nose present Eye: COMMON NORMALS: Equal, round and reactive pupils present and EOMs intact bilaterally PUPIL: Yes Equal, round and reactive pupils present Neck/C-Spine: GENERAL: Yes trachea midline Chest: CHEST: Yes Symmetrical chest wall rise Resp: COMMON NORMALS: normal respiratory effort, No retractions, No use of accessory muscles and clear to auscultation bilaterally AUSCULTATION: clear to auscultation bilaterally Cardio: COMMON NORMALS: regular rate and regular rhythm RATE: regular rate RHYTHM: regular rhythm GI: COMMON NORMALS: Normal to inspection, nondistended, normoactive bowel sounds present Extremity: COMMON NORMALS: no pedal edema Neuro: BERENICE COMA SCALE: document GCS findings Berenice coma scale eye opening: Spontaneous Gaylord coma scale verbal response: Orientated Berenice coma scale motor response: Obey commands Berenice coma scale total score: 15 S ENSORY EXAM: Yes extremities (intact) Psych: COMMON NORMALS: speech normal SPEECH: Yes normal speech Skin: COMMON NORMALS: no rashes or lesions noted GENERAL SKIN EXAM: no rashes or lesions noted Course 2 Vital Signs: Vital signs: Vital Signs Temperature 99 F 03/12/24 23:49 Pulse Rate 110 H 03/13/24 06:52 Respiratory Rate 18 03/13/24 06:52 Blood Pressure 130/83 03/13/24 06:52 Pulse Oximetry 92 03/13/24 06:52 Oxygen Delivery Me thod Nasal Cannula 03/13/24 06:30 Oxygen Flow Rate 2 03/13/24 04:04 MDM - Syncope Medical Decision Making This lady has a temperature of 99-100. She is tachycardic in the 120s. She had a syncopal episode at home. Her hemoglobin is 8.4 which is roughly stable from prior. However, her white blood cell count is 24, with a CRP of 350. Her creatinine is 0.7. She has had problems with hypokalemia in the past, and her potassium is 2.4, which has been repleted here. She has received 4.5 g of Zosyn, and a sepsis bolus using her ideal body weight. She is feeling improved. Her chest x-ray was negative. With a history of syncope, tachycardia, and mild hypoxia, CTA of the chest was ordered, with findings consistent with pulmonary vascular congestion mild interstitial edema. No infiltrate or clot. CT of the belly was performed and follow-through, showing no acute findings essentially. Her lactic acid is only 1.7. Her urinalysis is negative. Her respiratory panel is negative as well. I do not have a source of this lady's temperature, increased white blood cell count, and CRP. She has ongoing headache. At this point, 1 has to consider postoperative encephalitis/meningitis, etc. We do not have interventional radiology perform an LP under guidance in this morbidly obese lady. We also cannot perform MRI on the weekend at this point. We have no neurosurgery services available here. I spoke with chief resident of neurosurgery at [facility] where the patient had her surgery. She agrees to accept, and asks for an ER to ER transfer given long transfer distance between our facility and there is. I spoke with Dr. Tomas my counterpart in the emergency department there who has accepted the patient. Given the long transfer times, potential emergent nature of need for treatment, the patient will go by air EMS. Lab Data 03/13/24 00:32 03/13/24 00:32 Radiology Impressions Chest X-Ray 03/12/24 23:57 IMPRESSION: No acute findings. Head CT 03/13/24 00:27 IMPRESSION: 1. Surgical change in the left calvarium with stable CSF collection in the left middle cranial fossa with encephalomalacia in the left temporal lobe. 2. Decreased midline shift from [id number] now measuring 7 mm. 3. Resolution of intracranial air. 4. No evidence for residual subdural fluid or hemorrhage. 5. Persistent white matter edema through the left basal ganglia, left inferior frontal and left temporal lobe. Chest/Abdomen/Pelvis CT 03/13/24 01:13 IMPRESSION: Pulmonary vascular congestion with mild interstitial edema. IMPRESSION: 1. Decreased density of the liver, evidence for fatty infiltration. 2. Two right adnexal cysts measuring 4-5cm in diameter. Correlation with ultrasound suggested. Laboratory Results WBC 23.68 10^3/uL (3.29-11.43) H 03/13/24 00:32 RBC 3.32 10^6/uL (3.85-5.65) L 03/13/24 00:32 Hgb 8.40 g/dL (11.27-16.99) L 03/13/24 00:32 Hct 26.9 % (36-47) L 03/13/24 00:32 MCV 81.0 fl (85-98) L 03/13/24 00:32 MCH 25.3 pg (27-33) L 03/13/24 00:32 MCHC 31.2 g/dL (30-55) 03/13/24 00:32 RDW 17.1 % (12.1-15.1) H 03/13/24 00:32 Plt Count 481 10^3/cmm (157-399) H 03/13/24 00:32 MPV 9.7 fL (7.4-10.4) 03/13/24 00:32 Neut % (Auto) 85.9 % 03/13/24 00:32 Lymph % (Auto) 7.2 % 03/13/24 00:32 Long % (Auto) 5.4 % 03/13/24 00:32 Eos % (Auto) 0.0 % 03/13/24 00:32 Baso % (Auto) 0.2 % 03/13/24 00:32 Neut # (Auto) 20.34 10^3/uL (1.8-7.7) H 03/13/24 00:32 Lymph # (Auto) 1.7 10^3/uL (0.8-4.8) 03/13/24 00:32 Long # (Auto) 1.3 10^3/uL (0.2-0.9) H 03/13/24 00:32 Eos # (Auto) 0.0 10^3/uL (0.0-0.8) 03/13/24 00:32 Baso # (Auto) 0.0 10^3/uL (0.0-0.1) 03/13/24 00:32 Nucleated RBC % (auto) 0.1 % 03/13/24 00:32 Nucleated RBCs # 0.0 /100WBC 03/13/24 00:32 Sodium 132 mmol/L (136-145) L 03/13/24 00:32 Potassium 2.4 mmol/L (3.5-5.1) L* 03/13/24 00:32 Chloride 80 mmol/L (98-107) L 03/13/24 00:32 Carbon Dioxide 41 mmol/L (22-29) H 03/13/24 00:32 Anion Gap 13.4 (5-19) 03/13/24 00:32 BUN 7 mg/dL (6-20) 03/13/24 00:32 Creatinine 0.7 mg/dL (0.5-0.9) 03/13/24 00:32 GFR Calculation 93.2 mL/min (90-130) 03/13/24 00:32 Glucose 116 mg/dL (65-115) H 03/13/24 00:32 Calculated Osmolality 273 mOsm/kg (285-295) L 03/13/24 00:32 Lactic Acid 1.7 mmol/L (0.5-2.2) 03/13/24 00:32 Calcium 7.5 mg/dL (8.5-10.5) L 03/13/24 00:32 Magnesium 1.2 mg/dL (1.7-2.3) L 03/13/24 00:32 Total Bilirubin 0.3 mg/dL (0.15-1.2) 03/13/24 00:32 AST 33 U/L (0-32) H 03/13/24 00:32 ALT 23 U/L (0-33) 03/13/24 00:32 Alkaline Phosphatase 154 U/L (35-105) H 03/13/24 00:32 Creatine Kinase 583 U/L (26-192) H* 03/13/24 00:32 Troponin T Baseline 60 ng/L (0-10) H 03/13/24 00:32 Troponin T 120 Minute 60.56 ng/L (0-10) H 03/13/24 03:01 Delta Troponin T 0.56 ABS# (0-10) 03/13/24 03:01 C-Reactive Protein 346.0 mg/L (0.0-4.9) H 03/13/24 00:32 Total Protein 5.8 g/dL (6.6-8.7) L 03/13/24 00:32 Albumin 3.1 g/dL (3.5-5.2) L 03/13/24 00:32 Globulin 2.7 g/dL (1.3-4.6) 03/13/24 00:32 Urine Color Yellow (Yellow) 03/13/24 03:00 Urine Appearance Clear (CLEAR) 03/13/24 03:00 Urine pH 7.0 (5-7) 03/13/24 03:00 Ur Specific [place] 1.023 (1.005-1.030) 03/13/24 03:00 Urine Protein Negative (Negative) 03/13/24 03:00 Urine Glucose (UA) Negative (Normal) 03/13/24 03:00 Urine Ketones Negative (Negative) 03/13/24 03:00 Urine Blood Negative (Negative) 03/13/24 03:00 Urine Nitrate Negative (Negative) 03/13/24 03:00 Urine Bilirubin Negative (Negative) 03/13/24 03:00 Urine Urobilinogen 1.0 mg/dL (Negative) 03/13/24 03:00 Ur Leukocyte Esterase 1+ (Negative) A 03/13/24 03:00 Urine RBC 0-2 /hpf (0-2) 03/13/24 03:00 Urine WBC 6-10 /hpf (0-5) 03/13/24 03:00 Ur Squamous Epith Cells 0-5 /hpf (0-5) 03/13/24 03:00 Amorphous Sediment Not Reportable 03/13/24 03:00 Urine Bacteria Trace /hpf (NONE) 03/13/24 03:00 Hyaline Casts 0-4 /lpf H 03/13/24 03:00 Salicylates < 0.3 mg/dL (3-10) L 03/13/24 00:32 Urine Opiates Screen Positive ng/mL (Negative) H 03/13/24 03:00 Acetaminophen < 5.0 ug/mL (10-30) L 03/13/24 00:32 Ur Barbiturates Screen Positive ng/mL (Negative) H 03/13/24 03:00 Ur Phencyclidine Scrn Negative ng/mL (Negative) 03/13/24 03:00 Ur Amphetamines Screen Negative ng/mL (Negative) 03/13/24 03:00 U Benzodiazepines Scrn Negative ng/mL (Negative) 03/13/24 03:00 Urine Cocaine Screen Negative ng/mL (Negative) 03/13/24 03:00 U Marijuana (THC) Screen Positive ng/mL (Negative) H 03/13/24 03:00 Adenovirus (PCR) Not detected (NOT DETECT) 03/13/24 04:02 C. pneumoniae DNA (PCR) Not detected (NOT DETECT) 03/13/24 04:02 Coronavirus 229E (PCR) Not detected (NOT DETECT) 03/13/24 04:02 Human Metapneumovir PCR Not detected (NOT DETECT) 03/13/24 04:02 Influenza A (H1) PCR Not detected (NOT DETECT) 03/13/24 04:02 Influ A (H1/09) PCR Not detected (NOT DETECT) 03/13/24 04:02 Influenza A (H3) PCR Not detected (NOT DETECT) 03/13/24 04:02 Influenza Type A (PCR) Not detected (NOT DETECT) 03/13/24 04:02 Influenza Type B (PCR) Not detected (NOT DETECT) 03/13/24 04:02 M. pneumoniae (PCR) Not detected (NOT DETECT) 03/13/24 04:02 Parainfluenza 1 (PCR) Not detected (NOT DETECT) 03/13/24 04:02 Parainfluenza 2 (PCR) Not detected (NOT DETECT) 03/13/24 04:02 Parainfluenza 3 (PCR) Not detected (NOT DETECT) 03/13/24 04:02 Parainfluenza 4 (PCR) Not detected (NOT DETECT) 03/13/24 04:02 RSV Type A (PCR) Not detected (NOT DETECT) 03/13/24 04:02 RSV Type B (PCR) Not detected (NOT DETECT) 03/13/24 04:02 Entero/Rhino (PCR) Not detected (NOT DETECT) 03/13/24 04:02 SARS-CoV-2 (PCR) Not detected (NOT DETECT) 03/13/24 04:02 All radiology interpretation(s) finalized by discharge Discharge Plan Discharge Patient Disposition: Xfer Short-Term Hosp Clinical Impression: Fever, unknown origin Condition: Serious Referrals: Nuria Gibson NP [Primary Care Provider] - Coding Level of Care Code ED Classified Advertising Supervisor for Carli Ramey
== END 2024-03-13 06:54 | disposition short-term general hospital (02) ==
PROVIDERS: Emergency Provider Emergency Medicine; PCP Nurse Practitioner Family
DX: F50.9 Eating disorder, unspecified (principal); Z11.52 Encounter for screening for COVID-19; Z85.3 Personal history of malignant neoplasm of breast; Z92.21 Personal history of antineoplastic chemotherapy; I10 Essential (primary) hypertension
CPT/HCPCS: 36415; 70450; 71045; 71275; 74177; 80053; 80306; 80307; 81001; 82550; 83605; 83735; 84484; 85025; 86140; 87040; 87150; 87205; 87486; 87581; 87633; 93005; 96365; 96366; 96367; 96375; 96376; 99285; J1885; J2270; J2405; J2543; J3480; J7030

== ENCOUNTER 2024-04-09 10:47 | Emergency (ER) | payer OTHER, SELFPAY ==
[2024-04-09 10:48] VITALS: BP 122/88; PULSE 94; RESP 17; TEMP 36.8; O2SAT 98; BMI 44.7
--- NOTE | 2024-04-09 10:51 | ECG_ITS ---
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 Measurements Intervals [place] Rate: 83 P: 50 TX: 173 QRS: 52 QRSD: 80 T: 56 QT: 378 QTc: 446 Interpretive Statements SINUS RHYTHM Compared to ECG 03/13/2024 00:00:41 Sinus tachycardia no longer present Electronically Signed On 04-09-2024 18:29:10 DAIRY HELPER by Robby Miramontes M.D. [email or web address]
--- NOTE | 2024-04-09 10:51 | XR_ITS ---
WS: [id number] PORTABLE CHEST HISTORY: dyspnea/cough COMPARISON: 03/13/2024 Lungs are clear and well expanded. No pleural effusion or pneumothorax. Cardiac size: Normal. Mediastinum/Aorta: Normal mediastinum. No osseous abnormality seen. XR/XR chest 1V portable [id number] IMPRESSION: Unremarkable portable chest.
--- NOTE | 2024-04-09 10:56 | W.ED.GENADLT ---
HPI - General Adult General: Chief complaint: Nausea/Vomiting/Diarrhea Stated complaint: pain all over Time Seen by Provider: 04/09/24 10:50 History of Present Illness: 39-year-old female with a known history of a brain tumor. Last month that was resected at [facility]. She had been seen by palliative care there as well she is supposed undergo further treatment starting next week she comes in today she is out of her pain medications complaining severe pain no recent trauma or fall pain is led to some vomiting but she has not had any hematemesis coffee-ground emesis. No fever sweats or chills Associated symptoms: Reports headache(s); Deny chest pain, dyspnea or rash Related Data Home Medications Medication Instructions Recorded Confirmed levetiracetam 1,000 mg tablet 1,000 mg PO BID 03/25/24 04/09/24 methadone 5 mg tablet 5 mg PO BEDTIME 03/25/24 04/09/24 morphine 15 mg tablet,extended 15 mg PO Q6H 03/25/24 04/09/24 release pregabalin 50 mg capsule 100 mg PO BID 03/25/24 04/09/24 sumatriptan succinate 50 mg tablet 50 mg PO Q2H PRN Migraine Headache 03/25/24 04/09/24 trazodone 100 mg tablet 100 mg PO BEDTIME 03/25/24 04/09/24 amitriptyline 100 mg tablet 100 mg PO BEDTIME 04/09/24 04/09/24 buspirone 30 mg tablet 30 mg PO DAILY 04/09/24 04/09/24 furosemide 40 mg tablet 40 mg PO DAILY 04/09/24 04/09/24 potassium chloride 20 mEq 40 meq PO DAILY 04/09/24 04/09/24 tablet,extended release venlafaxine 75 mg capsule,extended 225 mg PO QAM 04/09/24 04/09/24 release 24 hr (Effexor XR) Previous Rx's Medication Instructions Recorded ondansetron HCl 4 mg tablet 4 mg PO TID PRN nausea and 10/14/23 vomiting #20 tabs dexamethasone 4 mg tablet 4 mg PO TID #90 tabs 04/09/24 Allergies Allergy/AdvReac Type Severity Reaction Status Date / Time No Known Allergies Allergy Verified 03/25/24 10:59 Review of Systems Const: Denies: fever(s) or chills Card: Denies: chest pain Resp: Denies: dyspnea GI: Denies: abdominal pain : Denies: dysuria, urinary frequency or urinary urgency Musc: Denies: neck pain or back pain Skin/Breast: Denies: rash Neuro: Reports: headache(s) PFS ED PFSH: Medical History Vapes nicotine containing substance History of radiation therapy Breast cancer, left History of chemotherapy Anxiety and depression Hypertension Edema Surgical History H/O total mastectomy of left breast Social History Smoking and tobacco/nicotine status: never used tobacco/nicotine Household members: spouse Marital status: Current occupational status: employed Current gender identity: Female Physical Exam Const: GENERAL APPEARANCE: cooperative ORIENTATION/CONSCIOUSNESS: Yes awake, Yes oriented to person, Yes oriented to place and Yes oriented to time HENMT: COMMON NORMALS: normocephalic, atraumatic and hearing grossly normal bilaterally HEAD & SCALP: normocephalic and atraumatic Resp: COMMON NORMALS: normal respiratory effort, No retractions, No use of accessory muscles and clear to auscultation bilaterally AUSCULTATION: clear to auscultation bilaterally Cardio: COMMON NORMALS: regular rate, regular rhythm and No murmurs present (Cardio) RATE: regular rate RHYTHM: regular rhythm GI: COMMON NORMALS: Soft to palpation and No hepatosplenomegaly present AUSCULTATION: Yes normoactive bowel sounds PALPATION: Yes Soft to palpation, No Tenderness to palpation present (GI), No Guarding due to palpation present (GI) and Yes No hepatosplenomegaly present Extremity: COMMON NORMALS: normal to inspection, capillary refill normal, no clubbing, cyanosis or edema, no calf tenderness and no pedal edema Neuro: SENSORIUM/ORIENTATION: Yes oriented to person, Yes oriented to place and Yes oriented to time Skin: COMMON NORMALS: no rashes or lesions noted GENERAL SKIN EXAM: no rashes or lesions noted Course Vital Signs: Vital signs: Vital Signs Temperature 98.2 F 04/09/24 10:48 Pulse Rate 85 04/09/24 13:28 Respiratory Rate 18 04/09/24 12:11 Blood Pressure 130/86 04/09/24 13:28 Pulse Oximetry 96 04/09/24 13:28 Oxygen Delivery Me thod Room Air 04/09/24 12:30 MDM - General Adult Medical Decision Making Initially contacted her neurosurgeon from [facility]. Unfortunately were not able to get the films transmitted so we cannot look at them directly discussed with him the radiologist findings he did not feel that that sounded like there is a significant change. Since she is nontoxic in appearance he did not feel that her rectum he would recommend transfer at this point it was more treating her symptoms. He concurred with consideration of dexamethasone. Dr. Boss felt there was some edema around the lesion but it was still unchanged from previous as was the previously noted midline shift. Patient stated she is out of her medications and asked that we call the palliative care team and she had been seeing at [facility]. Contact one of the doctors there they were very familiar with her they have significant concerns about her overusage of medications advised that we should not prescribe any further narcotics they are planning to transition her off of them she had run out so often they had transition to weekly prescriptions instead of a monthly prescription to try to prevent further problems. They also concurred to the dexamethasone but asked that we not prescribe further narcotics. Reviewed this with the patient with nurse present. She expresses understanding will discharge her home on 4 mg of the PAX dexamethasone 3 times a day follow-up with neurology and palliative care at [facility] as planned Lab Data 04/09/24 11:24 04/09/24 11:24 Radiology Impressions Chest X-Ray 04/09/24 10:51 IMPRESSION: Unremarkable portable chest. Head CT 04/09/24 11:08 IMPRESSION: 1. No acute intracranial hemorrhage. The most recent exam for comparison is 03/13/2024. 2. LEFT cerebral edema very similar in distribution to 03/13/2024. 3. Midline shift by 5.5 mm from LEFT to RIGHT. Similar to 03/13/2024 without progression. 4. Slight mass effect upon the LEFT lateral ventricle. 5. Stable LEFT frontotemporal craniotomy. Notified Ciaran Stafford DO at 04/09/2024 11:54 AM. Laboratory Results WBC 10.60 10^3/uL (3.29-11.43) 04/09/24 11:24 RBC 3.77 10^6/uL (3.85-5.65) L 04/09/24 11:24 Hgb 8.60 g/dL (11.27-16.99) L 04/09/24 11:24 Hct 29.8 % (36-47) L 04/09/24 11:24 MCV 79.0 fl (85-98) L 04/09/24 11:24 MCH 22.8 pg (27-33) L 04/09/24 11:24 MCHC 28.9 g/dL (30-55) L 04/09/24 11:24 RDW 17.1 % (12.1-15.1) H 04/09/24 11:24 Plt Count 514 10^3/cmm (157-399) H 04/09/24 11:24 MPV 9.2 fL (7.4-10.4) 04/09/24 11:24 Neut % (Auto) 73.0 % 04/09/24 11:24 Lymph % (Auto) 18.4 % 04/09/24 11:24 Faulk % (Auto) 5.9 % 04/09/24 11:24 Eos % (Auto) 2.0 % 04/09/24 11:24 Baso % (Auto) 0.3 % 04/09/24 11:24 Neut # (Auto) 7.74 10^3/uL (1.8-7.7) H 04/09/24 11:24 Lymph # (Auto) 2.0 10^3/uL (0.8-4.8) 04/09/24 11:24 Faulk # (Auto) 0.6 10^3/uL (0.2-0.9) 04/09/24 11:24 Eos # (Auto) 0.2 10^3/uL (0.0-0.8) 04/09/24 11:24 Baso # (Auto) 0.0 10^3/uL (0.0-0.1) 04/09/24 11:24 Nucleated RBC % (auto) 0 % 04/09/24 11:24 Nucleated RBCs # 0.0 /100WBC 04/09/24 11:24 Sodium 143 mmol/L (136-145) 04/09/24 11:24 Potassium 3.0 mmol/L (3.5-5.1) L 04/09/24 11:24 Chloride 107 mmol/L (98-107) 04/09/24 11:24 Carbon Dioxide 26 mmol/L (22-29) 04/09/24 11:24 Anion Gap 13.0 (5-19) 04/09/24 11:24 BUN 10 mg/dL (6-20) 04/09/24 11:24 Creatinine 0.8 mg/dL (0.5-0.9) 04/09/24 11:24 GFR Calculation 79.4 mL/min (90-130) L 04/09/24 11:24 Glucose 114 mg/dL (65-115) 04/09/24 11:24 Calculated Osmolality 296 mOsm/kg (285-295) H 04/09/24 11:24 Calcium 8.9 mg/dL (8.5-10.5) 04/09/24 11:24 Total Bilirubin 0.2 mg/dL (0.15-1.2) 04/09/24 11:24 AST 12 U/L (0-32) 04/09/24 11:24 ALT 10 U/L (0-33) 04/09/24 11:24 Alkaline Phosphatase 120 U/L (35-105) H 04/09/24 11:24 Total Protein 6.9 g/dL (6.6-8.7) 04/09/24 11:24 Albumin 3.3 g/dL (3.5-5.2) L 04/09/24 11:24 Globulin 3.6 g/dL (1.3-4.6) 04/09/24 11:24 All radiology interpretation(s) finalized by discharge Discharge Plan Discharge Patient Disposition: Home Clinical Impression: Headache Condition: Stable Prescriptions: New dexamethasone 4 mg tablet 4 mg PO TID Qty: 90 0RF No Action ondansetron HCl 4 mg tablet 4 mg PO TID PRN (Reason: nausea and vomiting) Qty: 20 0RF methadone 5 mg tablet 5 mg PO BEDTIME pregabalin 50 mg capsule 100 mg PO BID trazodone 100 mg tablet 100 mg PO BEDTIME levetiracetam 1,000 mg tablet 1,000 mg PO BID sumatriptan succinate 50 mg tablet 50 mg PO Q2H PRN (Reason: Migraine Headache) Rx Instructions: do not exceed 4 doses per 24 hrs morphine 15 mg tablet extended release 15 mg PO Q6H furosemide 40 mg tablet 40 mg PO DAILY venlafaxine [Effexor XR] 75 mg capsule,extended release 24hr 225 mg PO QAM buspirone 30 mg tablet 30 mg PO DAILY amitriptyline 100 mg tablet 100 mg PO BEDTIME potassium chloride 20 mEq tablet extended release 40 meq PO DAILY Discharge Orders: Discharge ED (Routine); Ordered 04/09/24 Ordered By: Ciaran Stafford Referrals: Shwetha Feldman FNP-C [Primary Care Provider] - Discharge Activity: Increase activity as tolerated Patient Instructions: Opioid Safety, Pain Management Activity Restrictions/Additional Instructions: Thank you [facility] choosing [facility] today. It is very important that you follow up as instructed or that you return to the Emergency Department should you have concerns or if your condition changes or worsens in any way. You were seen in the emergency room for complaint of headache. We contacted your physicians at [facility]. We did a CT of your head today. We discussed that CT with the neurosurgeon they did not feel there is any significant changes from what they had seen previously. We also contacted the palliative care medicine team that had seen you previously. They do not recommend any prescriptions for further narcotics. You should continue on the medications they had previously prescribed you at the frequency which which they described prescribed to you. We did add dexamethasone 4 mg 3 times a day take the first dose this evening. Follow-up with neurosurgery and palliative medicine at the [facility] as previously scheduled Coding Level of Care Code ED Contact Acid Plant Operator for Carli Ramey
[2024-04-09] MEDS: dexamethasone 10 mg/mL INJ IM (11:01)
[2024-04-09] MEDS: orphenadrine 30 mg/mL Inj 2 mL 60 MG IM (11:01)
--- NOTE | 2024-04-09 11:08 | CT_ITS ---
WS: [id number] CT HEAD NONCONTRAST HISTORY: History of brain tumor worsening headache with nausea vomiti TECHNIQUE: Contiguous axial imaging performed through the brain. Bone and soft tissue windows. Sagitt al and coronal reformats reviewed. All CT scans at [facility] use at least one of these dose optimization techniques: automated exposure control; mA and/or kV adjustment per patient size (includ es targeted exams where dose is matched to clinical indication); or iterative reconstruction. DLP: 1125.38 mGy.cm COMPARISON: 03/13/2024, 02/26/2024 No acute intracranial hemorrhage. Reidentified is LEFT cerebral edema. Edema within the temporal, pos terior frontal and parietal lobes. There is mass effect upon the midline structures. Mild bowing of t he midline structures to the RIGHT of midline by 5.5 mm. Very similar to the prior study. No pneumoce phalus. Fluid collection in the anterior LEFT middle cranial fossa has decreased as compared to 02/24. No atrophy or prior infarcts or herniation. Ventricles: Mild mass effect upon the LEFT lateral ventricle. Temporal horn is not dilated. No inferior displacement of the cerebellar tonsils. Paranasal sinuses: As visualized are clear. Mastoid air cells: Well pneumatized. Calvarium and scalp: Postsurgical changes of the LEFT frontotemporal craniotomy. CT/CT head wo con* [id number] IMPRESSION: 1. No acute intracranial hemorrhage. The most recent exam for comparison is . 2. LEFT cerebral edema very similar in distribution to 03/13/2024. 3. Midline shift by 5.5 mm from LEFT to RIGHT. Similar to 03/13/2024 without p rogression. 4. Slight mass effect upon the LEFT lateral ventricle. 5. Stable LEFT frontotemporal craniotomy. Notified Ciaran Stafford DO at 04/09/2024 11:54 AM.
[2024-04-09 11:30] LABS: Basophils % 0.3 %; Eosinophils # 0.2 10^3/uL (0.0-0.8); Hematocrit 29.8 % (36-47); Lymphocytes % 18.4 %; Mean Corpuscular HGB Conc 28.9 g/dL (30-55); Mean Corpuscular Hemoglobin 22.8 pg (27-33); Mean Platelet Volume 9.2 fL (7.4-10.4); Monocytes # 0.6 10^3/uL (0.2-0.9); Monocytes % 5.9 %; Neutrophils # 7.74 10^3/uL (1.8-7.7); Nucleated Red Blood Cells % 0 %; Platelet Count 514 10^3/cmm (157-399); Red Blood Count 3.77 10^6/uL (3.85-5.65); Red Cell Distribution Width 17.1 % (12.1-15.1)
[2024-04-09 11:33] VITALS: RESP 20; O2SAT 99
[2024-04-09] MEDS: morphine 4 mg/mL SDV 1 mL IVP ×2 (11:33→12:11)
[2024-04-09] MEDS: ondansetron 2 mg/ML SDV 2 mL 4 MG IVP (11:34)
[2024-04-09 11:50] LABS: Alanine Aminotransferase 10 U/L (0-33); Albumin Level 3.3 g/dL (3.5-5.2); Alkaline Phosphatase 120 U/L (35-105); Aspartate Amino Transferase 12 U/L (0-32); Blood Urea Nitrogen 10 mg/dL (6-20); Calcium 8.9 mg/dL (8.5-10.5); Carbon Dioxide 26 mmol/L (22-29); Chloride 107 mmol/L (98-107); Creatinine Clr Calc Pharmacy 153.0797; Globulin 3.6 g/dL (1.3-4.6); Glomerular Filtration Rate 79.4 mL/min (90-130); Glucose 114 mg/dL (65-115); Osmolality Calculated 296 mOsm/kg (285-295); Sodium 143 mmol/L (136-145); Total Bilirubin 0.2 mg/dL (0.15-1.2); Total Protein 6.9 g/dL (6.6-8.7)
[2024-04-09 12:11] VITALS: RESP 18; O2SAT 100
--- NOTE | 2024-04-09 12:11 | PC.PHAR ---
Addendum entered by Sil Osorio 04/09/24 12:14: Both Methadone and Morphine written by same doctor-Sagrario Buck. Original Note: Pt has surgery at [facility]. They made a few changes to her med list. Pt has Methadone 5 mg at bedtime filled 03/16/24 30ds from them and pt takes Morphine 15mg last filled at [facility]03/18/24 30ds #120.
[2024-04-09 12:30] VITALS: BP 136/83; PULSE 89; O2SAT 96
[2024-04-09 13:28] VITALS: BP 130/86; PULSE 85; O2SAT 96
== END 2024-04-09 13:29 | disposition home or self-care (01) ==
PROVIDERS: Emergency Provider Family Medicine; PCP Nurse Practitioner Family
DX: R51.9 Headache, unspecified (principal); I10 Essential (primary) hypertension; Z85.3 Personal history of malignant neoplasm of breast
CPT/HCPCS: 36415; 70450; 71045; 80053; 85025; 93005; 96372; 96374; 96375; 96376; 99285; J1100; J2270; J2360; J2405